=== PATIENT | female | born 1985 | race African-American/Black ===

== ENCOUNTER 2020-12-04 18:02 | Emergency (ER) | payer SELFPAY ==
--- NOTE | ~2020-12-04 | CT_ITS ---
EXAMINATION: CT abdomen pelvis wo con DATE: 12/04/2020 19:54 INDICATION: Left flank pain TECHNIQUE: Computed tomography (CT) of the abdomen and pelvis was performed without intravenous contr ast. The dose-length product (DLP) was 351.22 mGy-cm. Automated exposure control and iterative recons truction technique were employed. COMPARISON: None FINDINGS: The lung bases are clear. The heart size is normal. There is a 7 mm cyst of the left hepati c lobe. The spleen, pancreas, gallbladder, and adrenal glands are normal. No stones are identified in the kidneys, ureters, or bladder. There is no hydronephrosis or hydroureter. No pathologically enlar ged abdominal or pelvic lymph nodes are identified. There is no free intraperitoneal gas or evidence of bowel obstruction. The appendix is normal. A moderate volume of colonic stool is present. IMPRESSION: 1. No CT correlate for the patient's symptoms. Reviewed, dictated and finalized at location A.
[2020-12-04 18:23] VITALS: BP 116/72; PULSE 80; RESP 14; TEMP 36.5; O2SAT 99
--- NOTE | 2020-12-04 18:59 | ED.FEMALEGU ---
HPI - Female Genitourinary General Chief complaint: Urogenital-Female Stated complaint: Lower Back Pain, UTI Time Seen by Provider: 12/04/20 18:30 Source: patient Mode of arrival: ambulatory Limitations: no limitations History of Present Illness HPI Narrative: This is a 35 year old female that presents to the ER for urinary symptoms noted since yesterday. Reports dysuria and left sided low back pain. Reports she would like to be tested for STDs. Denies fever, nausea, vomiting or hematuria. Related Data Allergies Allergy/AdvReac Type Severity Reaction Status Date / Time No Known Allergies Allergy Mild Verified 12/04/20 18:49 Review of Systems Review of Systems: CONSTITUTIONAL: Denies fever GASTROINTESTINAL: Denies abdominal pain, nausea, vomiting GENITOURINARY: Reports dysuria. Denies hematuria. SKIN: Denies rash MUSCULOSKELETAL: Reports back pain, joint pain, and myalgia. All systems reviewed & are unremarkable except as noted in HPI and below PMFSH Past Medical History Medical History (Updated 12/04/20 @ 21:20 by Alyce Vieira PA-C) No active medical problems Social History Social History (Updated 12/04/20 @ 19:02 by Alyce Vieira PA-C) Smoking status: Never smoker Exam Narrative: GENERAL: Well-appearing, well-nourished, and in no acute distress. HEAD: Normocephalic, atraumatic. EYES: EOMI. CHEST: Clear to auscultation. No respiratory distress. No wheezes rales or rhonchi HEART: Regular rate and rhythm. No murmur heard. Normal peripheral pulses. ABDOMEN: Soft, nontender, nondistended, normal active bowel sounds. Left sided CVA tenderness EXTREMITIES: Normal range of motion. No edema. SKIN: Warm, dry, no rash. NEURO: No focal deficits. Alert and oriented x3. Normal gait PSYCH: Normal mood and affect Course Vital Signs Vital signs: Vital Signs Temperature 97.7 F 12/04/20 18:23 Pulse Rate 80 12/04/20 18:23 Respiratory Rate 14 12/04/20 18:23 Blood Pressure 116/72 12/04/20 18:23 Pulse Oximetry 99 12/04/20 18:23 Temperature 97.7 F 12/04/20 18:23 Pulse Rate 80 12/04/20 18:23 Respiratory Rate 14 12/04/20 18:23 Blood Pressure 116/72 12/04/20 18:23 Pulse Oximetry 99 12/04/20 18:23 MDM - Female Genitourinary MDM Narrative Medical decision making narrative: Patient presents to the emergency department for left-sided flank pain and urinary symptoms. She is afebrile and nontoxic-appearing. Vitals are stable. CBC and metabolic panel without concerning findings. UA with evidence of infection. Bedside test is negative. CT scan of the abdomen and pelvis was without acute findings. Trichomonas is negative, chlamydia and gonorrhea were sent. Patient would like to follow-up for results. Does not wish to be presumptively treated. Patient will be started on oral antibiotics. She is to follow-up with her primary care doctor. She was given warnings to return to the ER Lab Data Attestation: I reviewed the patient's lab results. Result diagrams: 12/04/20 18:56 12/04/20 18:56 Labs: Lab Results 12/04/20 12/04/20 12/04/20 Range/Units 18:56 18:56 18:56 WBC 8.6 (4.5-10.0) K/mm3 RBC 4.76 (4.2-5.4) M/mm3 Hgb 14.0 (12.0-15.0) g/dL Hct 42.5 (37.0-47.0) % MCV 89.3 (80-100) fl MCH 29.4 (26-34) pg MCHC 32.9 (32-36) g/dl RDW 13.1 (11.5-14.5) % Plt Count 302 (150-375) k/mm3 MPV 11.2 H (7.4-10.4) fl Immature Gran % (Auto) 0.4 (0-0.5) % Neut % (Auto) 62.1 (45.5-73.1) % Lymph % (Auto) 27.2 (18.3-44.2) % [place] % (Auto) 7.8 (2.6-8.5) % Eos % (Auto) 2.1 (0-4.4) % Baso % (Auto) 0.4 (0.2-1.2) % Lymph # (Auto) 2.33 (0.9-3.2) K/mm3 [place] # (Auto) 0.7 H (0.1-0.6) K/mm3 Eos # (Auto) 0.2 (0-0.3) K/mm3 Baso # (Auto) 0.0 (0.0-0.1) K/mm3 Abs Immat Gran (auto) 0.03 (0.00-0.031) K/mm3 Absolute Neuts (auto) 5.3 (1.3-6.7) K/mm3 Absolute Nucleated RBC
[2020-12-04 19:11] LABS: Basophils Percent Auto 0.4 % (0.2-1.2); Eosinophils Absolute Auto 0.2 K/mm3 (0-0.3); Eosinophils Percent Auto 2.1 % (0-4.4); Hematocrit 42.5 % (37.0-47.0); Immature Granulocyte Absolute 0.03 K/mm3 (0.00-0.031); Immature Granulocyte Percent A 0.4 % (0-0.5); Lymphocytes Absolute Auto 2.33 K/mm3 (0.9-3.2); Lymphocytes Percent Auto 27.2 % (18.3-44.2); Mean Corpuscular HGB Conc 32.9 g/dl (32-36); Mean Corpuscular Hemoglobin 29.4 pg (26-34); Mean Corpuscular Volume 89.3 fl (80-100); Mean Platelet Volume 11.2 fl (7.4-10.4); Monocytes Absolute Auto 0.7 K/mm3 (0.1-0.6); Monocytes Percent Auto 7.8 % (2.6-8.5); Neutrophils Absolute Auto 5.3 K/mm3 (1.3-6.7); Neutrophils Percent Auto 62.1 % (45.5-73.1); Platelet Count Result 302 k/mm3 (150-375); Red Blood Count 4.76 M/mm3 (4.2-5.4); Red Cell Distribution Width 13.1 % (11.5-14.5); White Blood Count 8.6 K/mm3 (4.5-10.0)
[2020-12-04 19:16] LABS: Anion Gap 9 mmol/L (8-16); Blood Urea Nitrogen 12 mg/dL (7-17); Calcium 9.4 mg/dL (8.4-10.2); Carbon Dioxide 25 mmol/L (22-30); Chloride 104 mmol/L (98-107); Estimated CRCL calculation 106 ml/min; Estimated Glomerular Filt Rate > 60; Glucose 92 mg/dL (65-110); Potassium 4.2 mmol/L (3.4-5.0); Sodium 138 mmol/L (137-145)
[2020-12-04 19:18] LABS: Add Urine Microscopic? YES; Appearance Urine Cloudy (Clear); Bilirubin Urine Negative (Negative); Blood Urine 3+ (Negative); Color Urine Yellow (Yellow); Glucose Urine UA Negative (Negative); Ketones Urine Negative (Negative); Leukocyte Esterase Ur 3+ LEU/UL (Negative); Mucus Urine Rare /lpf; Nitrate Urine Negative (Negative); Protein Urine 2+ mg/dL (Negative); RBC Urine >75 /hpf (0-2); Specific Grav Ur 1.017 (1.001-1.035); Squamous Epithelial Cell Urine Many /hpf (Few); Urobilinogen Urine Negative mg/dL (<2.0); WBC Urine >75 /hpf
[2020-12-04] MEDS: ACETAMINOPHEN 500 MG TABLET 1000 MG PO (19:30)
== END 2020-12-04 21:52 | disposition home or self-care (01) ==
PROVIDERS: Physician Assistant; Emergency Provider Emergency Medicine
DX: N10 Acute pyelonephritis (principal)
CPT/HCPCS: 36415; 74176; 80048; 81001; 81025; 85025; 87070; 87077; 87086; 87088; 87186; 87491; 87591; 87808; 99284; A9270

== ENCOUNTER 2022-03-17 19:04 | Emergency (ER) | payer OTHER, SELFPAY ==
[2022-03-17] VITALS (13 sets, daily range): BP systolic 107–119; BP diastolic 60–74; PULSE 70–89; RESP 14–25; TEMP 36.6; O2SAT 97–100
--- NOTE | ~2022-03-17 | CT_ITS ---
EXAMINATION:CT diagnostic chest wo con DATE: 03/17/2022 22:57 INDICATION: Left chest pain. TECHNIQUE: Computed tomography (CT) of the chest was performed without intravenous contrast. Automate d exposure control and iterative reconstruction technique were employed. The dose-length product (DLP ) was 225.72 mGy-cm. COMPARISON: CT abdomen and pelvis 12/04/2020 FINDINGS: The lungs demonstrate mild atelectasis. No pleural effusion. The heart size is normal. No p ericardial effusion. There are cysts in the liver measuring up to 8 mm. There is a benign bone island in T12 vertebral body. IMPRESSION: 1. No etiology for the patient's symptoms. Reviewed, dictated and finalized at location A. TENSION TESTER
--- NOTE | ~2022-03-17 | XR_ITS ---
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 RESULT: Lines, tubes, and devices: None. Lungs and pleura: Clear. Cardiomediastinal silhouette: Stable. Other: Possible cortical irregularity at multiple lateral ribs. No acute upper abdominal finding. IMPRESSION: Multiple possible left lateral rib fractures, consider dedicated radiographs of the left ribs if ther e is left chest wall pain/point tenderness. Reviewed, dictated and finalized at location K. TY BRAND INSPECTOR IMPRESSION: Multiple possible left lateral rib fractures, consider dedicated radiographs of the left ribs if there is left chest wall pain/point tenderness.
--- NOTE | 2022-03-17 19:21 | ECG_ITS ---
Measurements Intervals [place] Rate: 80 P: 66 PA: 142 QRS: 26 QRSD: 75 T: 32 QT: 374 QTc: 433 Interpretive Statements SINUS RHYTHM POSSIBLE LEFT ATRIAL ENLARGEMENT RSR' IN V1 OR V2, PROBABLY NORMAL VARIANT BORDERLINE ECG NO PREVIOUS ECG AVAILABLE FOR COMPARISON Electronically Signed On 03-17-2022 20:43:23 DESK DIRECTOR by Ayo Reynolds D.O.
[2022-03-17 20:25] LABS: Influenza A QL RT-PCR Negative (Negative); Influenza B QL RT-PCR Negative (Negative); SARS-CoV-2 RNA PCR Negative
--- NOTE | 2022-03-17 20:44 | ED.GENADULT ---
HPI - General Adult General Chief complaint: Unspecified <Paulina Stack MD - Last Filed: 03/20/22 09:28> Stated complaint: left side pain with inspiration <Paulina Stack MD - Last Filed: 03/20/22 09:28> Time Seen by Provider: 03/17/22 19:59 <Paulina Stack MD - Last Filed: 03/20/22 09:28> Source: patient and family <Paulina Stack MD - Last Filed: 03/20/22 09:28> Mode of arrival: ambulatory <Paulina Stack MD - Last Filed: 03/20/22 09:28> Limitations: no limitations <Paulina Stack MD - Last Filed: 03/20/22 09:28> History of Present Illness HPI narrative: 36 years old -Citizen Of [place] female came from home by private car with her complaining of left lower rib pain anteriorly associated with shortness of breath radiating to left upper back and left shoulder started 1 week ago. Worse with yelling Better taking a hot shower. She denies any fever, chills, nausea, vomiting, respiratory symptoms, sore throat, ear aches. Patient denies any trauma or recent new physical activities. Patient is healthy otherwise, does not take medicine at home, does not smoke, drinks occasionally and uses marijuana daily <Paulina Stack MD - Last Filed: 03/20/22 09:28> Related Data Home medications: Home Medications Medication Instructions Recorded Confirmed No Home Medications 03/17/22 03/17/22 <Paulina Stack MD - Last Filed: 03/20/22 09:28> Allergies/adverse reactions: Allergies Allergy/AdvReac Type Severity Reaction Status Date / Time No Known Allergies Allergy Mild Verified 03/17/22 19:58 <Paulina Stack MD - Last Filed: 03/20/22 09:28> Review of Systems Review of Systems: All systems reviewed & are unremarkable except as noted in HPI and below <Paulina Stack MD - Last Filed: 03/20/22 09:28> PMFSH Past Medical History Medical History: Medical History No active medical problems <Paulina Stack MD - Last Filed: 03/20/22 09:28> Social History Social History: Social History Smoking status: Never smoker <Paulina Stack MD - Last Filed: 03/20/22 09:28> Exam Narrative: General appearance: Well-developed, well-nourished Skin: Normal color Head: Normocephalic, nontraumatic Eyes: Clear conjunctiva ENT: Oropharynx normal, ears normal, nose normal Neck: Supple, nontender Chest and respiratory: Airway patent, no respiratory distress, no accessory muscle use. Left chest exam showed no tenderness, no rash, no bruises. Left upper back showed no significant finding. Heart: Regular rate/rhythm Abdomen: Soft, nontender, no organomegaly, quiet bowel sounds Vascular: Normal peripheral pulses, normal capillary refill. Musculoskeletal: Normal range of motion, nontender back Neurologic: Alert and oriented ?3, TURNSTILE ATTENDANT is normal as tested, no gross motor deficit <Paulina Stack MD - Last Filed: 03/20/22 09:28> Course Course Emergency Course: 2330 Zych: Patient was signed out to me pending completion of her CT scan. CT showed no focal airspace consolidation, pleural effusion or pneumothorax. No acute osseous abnormality or focal bone lesion, no significant overlying soft tissue abnormality. The rest the patient's workup was negative. Patient will be discharged home with instructions to take [id number] NSAIDs for pain. She should return emergency department if she develops worsening chest pain, shortness of breath, fevers or productive cough. <Romero Child MD - Last Filed: 03/17/22 23:31> Reevaluation(s) Reevaluation #1: Patient care turned over to Dr. benitez
[2022-03-17 21:23] LABS: Basophils Percent Auto 0.4 % (0.2-1.2); Eosinophils Absolute Auto 0.2 K/mm3 (0-0.3); Hematocrit 41.6 % (37.0-47.0); Hemoglobin 13.8 g/dL (12.0-15.0); Immature Granulocyte Absolute 0.02 K/mm3 (0.00-0.031); Immature Granulocyte Percent A 0.3 % (0-0.5); Lymphocytes Absolute Auto 3.08 K/mm3 (0.9-3.2); Mean Corpuscular HGB Conc 33.2 g/dl (32-36); Mean Corpuscular Hemoglobin 28.9 pg (26-34); Mean Corpuscular Volume 87.2 fl (80-100); Monocytes Absolute Auto 0.6 K/mm3 (0.1-0.6); Monocytes Percent Auto 8.4 % (2.6-8.5); Neutrophils Absolute Auto 3.6 K/mm3 (1.3-6.7); Neutrophils Percent Auto 47.9 % (45.5-73.1); Platelet Count Result 311 k/mm3 (150-375); Red Blood Count 4.77 M/mm3 (4.2-5.4); Red Cell Distribution Width 13.5 % (11.5-14.5); White Blood Count 7.5 K/mm3 (4.5-10.0)
[2022-03-17 21:29] LABS: Add Urine Microscopic? YES; Appearance Urine Clear (Clear); Bilirubin Urine Negative (Negative); Blood Urine Negative (Negative); Color Urine Yellow (Yellow); Glucose Urine UA Negative (Negative); Ketones Urine Negative (Negative); Leukocyte Esterase Ur Trace LEU/UL (Negative); Nitrate Urine Negative (Negative); Protein Urine Negative (Negative)
[2022-03-17 21:34] LABS: Prothrombin Time 13.2 Seconds (11.1-14.7)
[2022-03-17 21:35] LABS: Partial Thromboplastin Time 26.6 SECONDS (22.3-36.8)
[2022-03-17 21:38] LABS: Alanine Aminotransferase 22 U/L (6-35); Albumin Level 4.5 g/dL (3.5-5.1); Alkaline Phosphatase 69 U/L (38-126); Anion Gap 7 mmol/L (8-16); Aspartate Amino Transferase 24 U/L (14-36); Bilirubin,Total 0.3 mg/dL (0.2-1.3); Blood Urea Nitrogen 12 mg/dL (7-17); Calcium 9.1 mg/dL (8.4-10.2); Carbon Dioxide 25 mmol/L (22-30); Chloride 102 mmol/L (98-107); Estimated CRCL calculation 71 ml/min; Estimated Glomerular Filt Rate > 60; Glucose 94 mg/dL (65-110); Potassium 3.8 mmol/L (3.4-5.0); Sodium 134 mmol/L (137-145)
[2022-03-17 21:40] LABS: Mucus Urine Few /lpf; Squamous Epithelial Cell Urine Many /hpf (Few)
[2022-03-17 21:43] LABS: D Dimer 0.32 ug/mL (<0.48)
[2022-03-17 21:49] LABS: Troponin I < 0.012 ng/mL (0.000-0.034)
== END 2022-03-17 23:31 | disposition home or self-care (01) ==
PROVIDERS: Emergency Medicine; Emergency Provider Emergency Medicine
DX: M54.6 Pain in thoracic spine (principal); Z20.822 Contact with and (suspected) exposure to COVID-19; R94.31 Abnormal electrocardiogram [ECG] [EKG]
CPT/HCPCS: 36415; 71046; 71250; 80053; 81001; 81025; 84484; 85025; 85380; 85610; 85730; 87086; 87088; 87636; 93005; 99284